=== PATIENT | female | born 1965 | race Caucasian/White ===

== ENCOUNTER 2024-05-07 22:49 | Inpatient (IN) | payer MEDICARE ==
[2024-05-08 00:42] LABS: #Basophils 0.07 10x3/uL (0.0-0.2); %Basophils 0.9 % (0.0-1.0); %Eosinophils 1.3 % (0.0-10.0); %Lymphocytes 27.8 % (21.0-51.0); %Monocytes 4.7 % (0.0-10.0); Hematocrit 38.3 % (36.0-47.0); Hemoglobin 12.5 g/dL (12.0-16.0); Mean Corpuscular HGB CONC 32.6 g/dL (32.0-36.0); Mean Corpuscular Hemoglobin 29.3 pg (27.0-31.0); Mean Corpuscular Volume 89.7 fL (78.0-98.0); Mean Platelet Volume 9.4 fL (7.4-10.4); Platelet Count 296 10x3/uL (130-400); RBC Distribution Width 12.4 % (11.5-14.5); Red Blood Cell (RBC) Count 4.27 mill/uL (4.20-5.40)
[2024-05-08 01:00] LABS: ALT (SGPT) 15 U/L (8-55); AST (SGOT) 19 U/L (5-34); Albumin 3.7 g/dL (3.5-5.0); Alkaline Phosphatase 114 U/L (40-110); Anion Gap 16 mmol/L (10-20); BUN (Urea Nitrogen) 10 mg/dL (9.8-20.1); Bilirubin, Total 0.7 mg/dL (0.2-1.2); Calc. Creatinine Clearance 0 mL/min (70-130); Calcium 10.2 mg/dL (7.8-10.44); Carbon Dioxide 24 mmol/L (22-29); Chloride 102 mmol/L (98-107); Estimated GFR 72; Globulin 3.6 g/dL (2.4-3.5); Glucose 244 mg/dL (70-105); Protein, Total 7.3 g/dL (6.0-8.3); Sodium 138 mmol/L (136-145)
[2024-05-08] MEDS ORDERED: Ondansetron PF 4 MG/2 ML Vial ONE ×3 (03:12→07:04)
[2024-05-08] MEDS ORDERED: Morphine 4 MG/ML VIAL ONE (03:38)
[2024-05-08 06:52] LABS: Bacteria/HPF None Seen HPF (None Seen); Bilirubin Negative (Negative); Blood, Urine Negative (Negative); CAUTI Indications for Culture Pelvic or flank pain; Clarity Clear (Clear); Glucose, Urine (Dipstick) Greater than 1000 mg/dL (Negative); Ketone, Urine 10 mg/dL (Negative); Leukocyte Negative Leu/uL (Negative); Nitrite Negative (Negative); Protein, Urine (Dipstick) 20 mg/dL (Neg-Trace); RBC/HPF 0-3 HPF (0-3); Specific Gravity, Urine 1.019 (1.002-1.036); Squamous Epithelial 0-3 HPF (0-3); Urobilinogen Normal mg/dL (Less than 2); WBC/HPF None Seen HPF (0-3)
[2024-05-08 06:53] LABS: Urine Culture Reflex No No
[2024-05-08] MEDS ORDERED: Ketorolac Tromethamine 30 MG (1 mL) VIAL ONE (07:04)
[2024-05-08] MEDS ORDERED: Ondansetron PF 4 MG/2 ML Vial IVP PRN (08:37)
[2024-05-08] MEDS ORDERED: HumaLOG 300 UNITS/3 ML VIAL SC PRN (08:39)
[2024-05-08] MEDS ORDERED: Glucagon 1 MG/ML KIT IM PRN (08:39)
[2024-05-08] MEDS ORDERED: Dextrose 50% Abboject 50 ML SYRINGE SLOW IVP PRN (08:39)
[2024-05-08] MEDS ORDERED: Dextrose 5% in Water 1,000 ML IV PRN (08:39)
[2024-05-08] MEDS: Lidocaine 2% Viscous 10 mL, Alum & Magn 30 mL SSW SCH (10:06)
[2024-05-08 10:10] VITALS: BMI 37.2
[2024-05-08] MEDS: Enoxaparin 40 MG (0.4 mL) SYRINGE SC SCH (10:15)
[2024-05-08] MEDS: Famotidine 20 MG TAB PO SCH (10:16)
[2024-05-08] MEDS: Ciprofloxacin Lactate/D5W 400 MG in Premix 1 BAG IVPB SCH (10:16)
[2024-05-08] MEDS: Sodium Chloride 0.9% 1,000 ML IV SCH (11:08)
[2024-05-08] MEDS: metroNIDAZOLE 500 MG in Premix 1 BAG IVPB SCH (11:09)
[2024-05-08] MEDS: Morphine 2 MG/ML VIAL SLOW IVP PRN (11:09)
[2024-05-08] MEDS ORDERED: Iopamidol 370 76% 100 ML VIAL ONE (11:32)
[2024-05-08] MEDS: Insulin Lispro 100 UNIT/ML 10 ML VIAL SC PRN (17:51)
[2024-05-08] MEDS: Metoprolol Tartrate 25 MG TAB PO SCH (20:51)
[2024-05-08] MEDS: Acetaminophen 325 MG TAB PO PRN (22:25)
[2024-05-08] MEDS: QUEtiapine 100 MG TAB PO SCH (22:26)
[2024-05-08] MEDS: Cyclobenzaprine 10 MG TAB PO PRN (22:26)
[2024-05-08] MEDS: traZODone HCl 50 MG TAB PO SCH (22:27)
[2024-05-09 06:19] LABS: #Basophils 0.03 10x3/uL (0.0-0.2); %Basophils 0.6 % (0.0-1.0); %Eosinophils 2.4 % (0.0-10.0); %Lymphocytes 33.9 % (21.0-51.0); %Monocytes 6.4 % (0.0-10.0); %Neutrophils 56.5 % (42.0-75.0); Hematocrit 30.9 % (36.0-47.0); Hemoglobin 9.8 g/dL (12.0-16.0); Mean Corpuscular HGB CONC 31.7 g/dL (32.0-36.0); Mean Corpuscular Hemoglobin 29.2 pg (27.0-31.0); Mean Platelet Volume 9.2 fL (7.4-10.4); Platelet Count 218 10x3/uL (130-400); RBC Distribution Width 12.7 % (11.5-14.5); Red Blood Cell (RBC) Count 3.36 mill/uL (4.20-5.40)
[2024-05-09 06:35] LABS: Anion Gap 12 mmol/L (10-20); BUN (Urea Nitrogen) 8 mg/dL (9.8-20.1); Calc. Creatinine Clearance 110 mL/min (70-130); Calcium 8.3 mg/dL (7.8-10.44); Carbon Dioxide 25 mmol/L (22-29); Chloride 105 mmol/L (98-107); Estimated GFR 81; Glucose 162 mg/dL (70-105); Potassium 3.9 mmol/L (3.5-5.1); Sodium 138 mmol/L (136-145)
[2024-05-09] MEDS: Atorvastatin Calcium 40 MG TAB PO SCH (08:12)
[2024-05-09] MEDS: Gabapentin 300 MG CAP PO SCH (08:12)
[2024-05-09] MEDS: Lisinopril 10 MG TAB PO SCH (08:12)
[2024-05-09] MEDS: Citalopram 20 MG TAB PO SCH (08:13)
[2024-05-09] MEDS: Aspirin Chewable 81 MG TAB PO SCH (08:13)
[2024-05-09] MEDS: Morphine 4 MG/ML VIAL SLOW IVP PRN (20:20)
[2024-05-09] MEDS: Donnatal Elixir 16.2 MG/5 ML UDCUP PO SCH (20:32)
[2024-05-10 04:52] LABS: #Basophils 0.04 10x3/uL (0.0-0.2); %Basophils 0.7 % (0.0-1.0); %Eosinophils 2.6 % (0.0-10.0); %Lymphocytes 35.9 % (21.0-51.0); %Monocytes 7.9 % (0.0-10.0); %Neutrophils 52.5 % (42.0-75.0); Hematocrit 28.7 % (36.0-47.0); Mean Corpuscular HGB CONC 31.4 g/dL (32.0-36.0); Mean Corpuscular Hemoglobin 28.6 pg (27.0-31.0); Mean Corpuscular Volume 91.1 fL (78.0-98.0); Mean Platelet Volume 9.8 fL (7.4-10.4); Platelet Count 197 10x3/uL (130-400); RBC Distribution Width 12.8 % (11.5-14.5); Red Blood Cell (RBC) Count 3.15 mill/uL (4.20-5.40)
[2024-05-10 05:39] LABS: Anion Gap 9 mmol/L (10-20); BUN (Urea Nitrogen) 7 mg/dL (9.8-20.1); Calc. Creatinine Clearance 106 mL/min (70-130); Calcium 8.4 mg/dL (7.8-10.44); Carbon Dioxide 23 mmol/L (22-29); Chloride 105 mmol/L (98-107); Estimated GFR 78; Glucose 161 mg/dL (70-105); Potassium 3.9 mmol/L (3.5-5.1); Sodium 133 mmol/L (136-145)
[2024-05-11] MEDS: GoLYTELY 4,000 ml Bottle PO SCH (16:17)
[2024-05-12] MEDS: Promethazine 25 MG TAB PO PRN (05:01)
[2024-05-12] MEDS: GoLYTELY 4,000 ml Bottle PO SCH (06:14)
[2024-05-12] MEDS: Ipratropium/Albuterol 3 ML NEB NEB PRN (06:34)
[2024-05-12] MEDS ORDERED: Lidocaine 1% PF 5 ML VIAL ONE ×2 (07:22→10:30)
[2024-05-12] MEDS ORDERED: PROPOFOL 40 ML ONE (07:22)
[2024-05-12 08:49] LABS: Anion Gap 20 mmol/L (10-20); BUN (Urea Nitrogen) 4 mg/dL (9.8-20.1); Calc. Creatinine Clearance 107 mL/min (70-130); Calcium 9.3 mg/dL (7.8-10.44); Carbon Dioxide 22 mmol/L (22-29); Chloride 102 mmol/L (98-107); Estimated GFR 79; Glucose 241 mg/dL (70-105); Potassium 4.2 mmol/L (3.5-5.1); Sodium 140 mmol/L (136-145)
[2024-05-12] MEDS ORDERED: GLYCOPYRROLATE/PF 0.2 MG/ML VIAL ONE (10:15)
[2024-05-12] MEDS ORDERED: PROPOFOL 20 ML ONE (10:31)
[2024-05-12] MEDS ORDERED: fentaNYL 50 mcg/mL 1 mL Vial ONE (11:42)
[2024-05-12] MEDS: Melatonin 3 MG TAB PO SCH (23:11)
[2024-05-13] MEDS: Ciprofloxacin 500 MG TAB PO SCH (06:06)
[2024-05-13] MEDS: metroNIDAZOLE 500 MG TAB PO SCH (06:06)
[2024-05-13 06:15] LABS: Adenovirus F 40-41 Not Detected (Not Detected); Astrovirus Not Detected (Not Detected); C. difficile toxin A+B Not Detected (Not Detected); Campylobacter by PCR Not Detected (Not Detected); Cryptosporidium Not Detected (Not Detected); Cyclospora cayetanensis Not Detected (Not Detected); Entamoeba histolytica Not Detected (Not Detected); Enteroaggregative E. coli Not Detected (Not Detected); Enteropathogenic E. coli DETECTED (Not Detected); Enterotoxigenic E. coli Not Detected (Not Detected); Giardia lamblia Not Detected (Not Detected); Norovirus GI-GII Not Detected (Not Detected); Plesiomonas shigelloides Not Detected (Not Detected); Rotavirus A Not Detected (Not Detected); Salmonella Not Detected (Not Detected); Sapovirus Not Detected (Not Detected); Shiga-toxin-producing E coli Not Detected (Not Detected); Shigella/Enteroinvasive E coli Not Detected (Not Detected); Vibrio Not Detected (Not Detected); Vibrio cholerae Not Detected (Not Detected); Yersinia enterocolitica Not Detected (Not Detected)
[2024-05-13 07:33] VITALS: TEMP 98.4
[2024-05-13] MEDS: Enoxaparin 40 MG (0.4 mL) SYRINGE SC SCH (09:07)
[2024-05-13 09:10] VITALS: BP 153/59
== END 2024-05-13 12:55 | disposition home or self-care (01) | DRG 394 ==
LOC: ERS 22:49 → T4-B 05-08 09:45 → OBSVTOIN 05-11 08:04
PROVIDERS: ADMIT Internal Medicine; ATTEND Internal Medicine
PROC: 0DJD8ZZ Inspection of Lower Intestinal Tract, Via Natural or Artificial Opening Endoscopic (ICD-10-PCS; principal; 2024-05-12)
PROC: 0DB68ZX Excision of Stomach, Via Natural or Artificial Opening Endoscopic, Diagnostic (ICD-10-PCS; 2024-05-12)
DX: K55.9 Vascular disorder of intestine, unspecified (principal); K22.10 Ulcer of esophagus without bleeding; K63.3 Ulcer of intestine; E11.9 Type 2 diabetes mellitus without complications; I25.10 Atherosclerotic heart disease of native coronary artery without angina pectoris; K29.60 Other gastritis without bleeding; I10 Essential (primary) hypertension; J44.9 Chronic obstructive pulmonary disease, unspecified; Z90.49 Acquired absence of other specified parts of digestive tract; Z95.1 Presence of aortocoronary bypass graft; Z98.890 Other specified postprocedural states; Z87.891 Personal history of nicotine dependence
CPT/HCPCS: 36415; 36416; 74177; 80048; 80053; 81001; 83690; 85025; 86141; 87040; 87324; 87449; 87507; 88305; 88342; 94640; 96361; 96365; 96366; 96367; 96372; 96374; 96375; 96376; G0378; J0744; J1650; J1815; J1885; J2270; J2272; J2405; J2704; J3010; J3490; J7050; J7620; Q0169; Q9967